=== PATIENT | male | born 1955 | race Caucasian/White ===

== ENCOUNTER 2017-04-01 15:13 | Inpatient (IN) | payer OTHER ==
[~2017-04-01] VITALS: Ht 175.3 cm; Wt 104.3 kg
[~2017-04-01 15:13] MED LIST: ADULT LOW DOSE81 MG PO; ANTIBIOT TOP; CELEXA; CELEXA40 MG PO; D3; DICLOFENAC; DICLOFENAC SODI75 M1 PO; FENOFIBRATE160 MG PO; FISH OIL 1,0001 EAC5 PO; FISHOIL; FLEXERIL PO; GLUCOPHAGE1000 MG PO; GRALISE600 MG PO; KEFLEX500 MG PO; LANTUS SUBQ; LISINOPRIL; LISINOPRIL5 MG PO; METFORMIN; NORCO 10-325 T1 EACH PO; NORCO 5-325 TA1 EACH PO; NORCO 7.5-3251 EACH PO; NOVOLOG100 UNIT/1 SUBQ; ONE DAILY ESSE1 EACH PO; PHENERGAN 25 MG25 M1 PO; SIMVASTATIN40 MG PO; VITAMIN D10000 UNIT PO; ZOCOR
[2017-04-01 15:20] VITALS: BP 99/60
[2017-04-01 15:58] LABS: ABSOLUTE EOSINOPHILS 0.2 thou/uL (0.0-0.7); ABSOLUTE LYMPHOCYTES 1.3 thou/uL (0.8-5.3); ABSOLUTE MONOCYTES 0.7 thou/uL (0.0-1.2); ABSOLUTE NEUTROPHILS 7.7 thou/uL (1.6-8.1); BASOPHILS 0.5 %; EOSINOPHILS 2.1 %; HEMATOCRIT 35.7 % (42.0-52.0); HEMOGLOBIN 11.9 gm/dL (14.0-18.0); LYMPHOCYTES 13.5 %; MCH 28.3 pg (26.0-34.0); MCHC 33.5 g/dL (28.0-37.0); MCV 84.6 fL (80.0-100.0); MONOCYTES 6.7 %; MPV 7.6 fl. (7.2-11.1); NUCLEATED RBCS 0 /100WBC; PLATELET COUNT* 255 thou/uL (150-400); POLYS 77.2 %; RBC 4.22 mil/uL (4.50-6.00); RDW-CV 14.5 % (10.5-14.5)
[2017-04-01 16:06] LABS: CALCIUM 8.9 mg/dL (8.5-10.1); CREATININE 1.1 mg/dL (0.6-1.3); POTASSIUM 3.5 mmol/L (3.5-5.1)
[2017-04-01 16:11] LABS: ALBUMIN 2.7 g/dL (3.4-5.0); TOTAL BILIRUBIN 0.5 mg/dL (<0.1-1.0); TOTAL PROTEIN 6.9 g/dL (6.4-8.2)
[2017-04-01 18:45] VITALS: BP 94/59
[2017-04-01 20:15] VITALS: BP 94/54
[2017-04-02] VITALS: BP 116/73
[2017-04-02 04:45] LABS: HEMATOCRIT 31.7 % (42.0-52.0); HEMOGLOBIN 10.7 gm/dL (14.0-18.0); MCH 28.8 pg (26.0-34.0); MCHC 33.7 g/dL (28.0-37.0); MCV 85.4 fL (80.0-100.0); MPV 7.7 fl. (7.2-11.1); RBC 3.71 mil/uL (4.50-6.00); RDW-CV 14.6 % (10.5-14.5); WBC 7.2 thou/uL (4.0-11.0)
[2017-04-02 05:04] LABS: ALBUMIN 2.3 g/dL (3.4-5.0); CREATININE 0.9 mg/dL (0.6-1.3); MAGNESIUM 1.6 mg/dL (1.8-2.4); POTASSIUM 4.1 mmol/L (3.5-5.1); TOTAL BILIRUBIN 0.4 mg/dL (<0.1-1.0)
[2017-04-02 08:37] VITALS: BP 98/68
[2017-04-02 16:00] VITALS: BP 107/86
[2017-04-02 21:35] VITALS: BP 103/63
[2017-04-03 04:16] LABS: HEMATOCRIT 31.2 % (42.0-52.0); HEMOGLOBIN 10.5 gm/dL (14.0-18.0); MCH 28.4 pg (26.0-34.0); MCHC 33.5 g/dL (28.0-37.0); MCV 84.9 fL (80.0-100.0); MPV 7.5 fl. (7.2-11.1); RBC 3.68 mil/uL (4.50-6.00); RDW-CV 14.6 % (10.5-14.5); WBC 6.5 thou/uL (4.0-11.0)
[2017-04-03 04:32] LABS: ALBUMIN 2.2 g/dL (3.4-5.0); CALCIUM 8.2 mg/dL (8.5-10.1); CREATININE 0.8 mg/dL (0.6-1.3); MAGNESIUM 1.7 mg/dL (1.8-2.4); TOTAL BILIRUBIN 0.4 mg/dL (<0.1-1.0)
[2017-04-03 08:00] VITALS: BP 104/64
[2017-04-03 15:42] VITALS: BP 109/66
[2017-04-03 20:10] VITALS: BP 96/59
[2017-04-04 03:09] LABS: GLYCOHEMOGLOBIN (HGB A1C) 5.6 % (4.8-5.6)
[2017-04-04 05:02] LABS: HEMATOCRIT 32.6 % (42.0-52.0); HEMOGLOBIN 10.9 gm/dL (14.0-18.0); MCH 28.6 pg (26.0-34.0); MCHC 33.4 g/dL (28.0-37.0); MCV 85.6 fL (80.0-100.0); MPV 7.7 fl. (7.2-11.1); RBC 3.81 mil/uL (4.50-6.00); RDW-CV 14.5 % (10.5-14.5); WBC 7.8 thou/uL (4.0-11.0)
[2017-04-04 05:06] LABS: CALCIUM 8.4 mg/dL (8.5-10.1); CREATININE 0.8 mg/dL (0.6-1.3); POTASSIUM 4.2 mmol/L (3.5-5.1)
[2017-04-04 08:00] VITALS: BP 123/82
[2017-04-04 16:20] VITALS: BP 106/62
[2017-04-04 20:00] VITALS: BP 100/61
[2017-04-05] VITALS: BP 91/57
[2017-04-05 04:48] LABS: ABSOLUTE EOSINOPHILS 0.2 thou/uL (0.0-0.7); ABSOLUTE LYMPHOCYTES 0.9 thou/uL (0.8-5.3); ABSOLUTE MONOCYTES 0.3 thou/uL (0.0-1.2); ABSOLUTE NEUTROPHILS 3.6 thou/uL (1.6-8.1); BASOPHILS 0.4 %; EOSINOPHILS 3.8 %; HEMATOCRIT 34.8 % (42.0-52.0); HEMOGLOBIN 11.5 gm/dL (14.0-18.0); LYMPHOCYTES 18.2 %; MCH 28.2 pg (26.0-34.0); MCHC 33.2 g/dL (28.0-37.0); MCV 85.2 fL (80.0-100.0); MONOCYTES 6.9 %; MPV 7.4 fl. (7.2-11.1); NUCLEATED RBCS 0 /100WBC; PLATELET COUNT* 291 thou/uL (150-400); POLYS 70.7 %; RBC 4.08 mil/uL (4.50-6.00); RDW-CV 14.9 % (10.5-14.5); WBC 5.1 thou/uL (4.0-11.0)
[2017-04-05 06:49] LABS: CALCIUM 8.5 mg/dL (8.5-10.1); CREATININE 0.8 mg/dL (0.6-1.3); PHOSPHORUS* 3.7 mg/dL (2.5-4.9); POTASSIUM 4.2 mmol/L (3.5-5.1)
[2017-04-05 08:00] VITALS: BP 111/72
[2017-04-05] MEDS ORDERED: CIPRO250 M1 PO (12:40)
[2017-04-05] MEDS ORDERED: FLAGYL500 MG PO (12:40)
[2017-04-05] MEDS ORDERED: PROBIOTIC1 EAC1 PO (12:41)
[2017-04-05 14:35] VITALS: BP 111/72
[2017-04-05 14:38] VITALS: BP 111/72
[2017-04-05 16:27] VITALS: BP 111/72
[2017-04-05 16:28] VITALS: BP 111/72
--- NOTE | 2017-04-18 14:50 | CON ---
[address] [address] CONSULTATION Name: JORJE DECKER Room: [address] IN ..#: [id number] Admission: 04/01/17 Attend Phys: Marco Winn, Discharge: 04/05/17 Date of : 59 Report #: [id number] THIS REPORT FOR: //name// CC: Oniel Winn DATE OF SERVICE: 04/02/2017 REASON FOR CONSULT: Abnormal CT and abdominal pain. HISTORY OF PRESENT ILLNESS: This is a 61-year-old male with history of colonoscopy 9 years ago, which was significant only for diverticulosis. The patient reports that he never had any problems with diverticulitis, but started having abdominal pain, which was mainly in the left lower quadrant. This prompted him to see his primary care doctor on Saturday and he was sent for a CT scan of the abdomen. Subsequent to CT, the results revealed a small pocket of extraluminal gas and a 1.6 x 2.6 cm abscess next to the sigmoid region. The patient was then asked to present to hospital where he was admitted. Since hospitalization, the patient has been started on IV antibiotics. The patient reports that he has diabetes for the past 5 years and since he wanted to get that under control he has been trying to lose weight and has lost 60 pounds in the past year. He denied any upper GI symptoms as he denies nausea, vomiting, dyspepsia, GERD and dysphagia. PAST MEDICAL HISTORY: Significant for hyperlipidemia, hypertension, diabetes, diverticulosis. ALLERGIES: No known drug allergy. MEDICATIONS: Please refer to hospital MAR. SOCIAL HISTORY: The patient lives at home. Denies tobacco or alcohol use. FAMILY HISTORY: Negative for GI malignancy. PHYSICAL EXAMINATION: VITAL SIGNS: Reveals blood pressure of 98/68, respiration 18, pulse 76, temperature 36.9. LUNGS: Clear. CARDIOVASCULAR: Regular. ABDOMEN: Soft, mildly tender to palpation in the left lower quadrant. Bowel sounds are positive. NEUROLOGIC: The patient is alert, oriented x 3. [place] [address] CONSULTATION Name: JORJE DECKER Room: [address]#: [id number] Admission: 04/01/17 Attend Phys: Marco Winn, Discharge: 04/05/17 Date of : 59 Report #: [id number]. LABORATORY DATA: Revealed WBC of 7.2, hemoglobin 10.7 with platelet count of 214. Sodium is 134, potassium 4.1, BUN is 12, creatinine 0.9, glucose is 161, calcium is 8.0. Liver function tests are all within normal limit. Total bilirubin 0.4, albumin is 2.3. WBC is 10.0 with hemoglobin of 11.9 and platelets of 255. IMAGING: CT of abdomen and pelvis as discussed above. ASSESSMENT AND PLAN: The patient with moderate pericolonic inflammatory region in the sigmoid colon with a small abscess and a small pocket of extraluminal gas. Surgery is on board and the patient is on antibiotics. We will recommend repeat CT of abdomen in 3 days and if there is no resolution or partial resolution of the abscess, we will consider drainage by IR. The patient has not had a colonoscopy for the past 9 years, therefore we will recommend colonoscopy in 6-8 weeks. We will continue to monitor him during this hospitalization and make further recommendation. <ELECTRONICALLY SIGNED> By: Carlos Eduardo Salomon MD 04/18/17 1450 1400 29Carlos Eduardo Salomon MD /nt
== END 2017-04-05 15:45 | disposition home or self-care (01) | DRG 392 ==
LOC: M.ERS 15:13 → M.TBA-ER 16:55 → M.ORTHSURG 16:55
PROVIDERS: Internal Medicine; Personal Emergency Response Attendant; Surgery; ADMIT Family Medicine
DX: K57.20 Diverticulitis of large intestine with perforation and abscess without bleeding (principal); E87.1 Hypo-osmolality and hyponatremia; E44.0 Moderate protein-calorie malnutrition; F32.9 Major depressive disorder, single episode, unspecified; I10 Essential (primary) hypertension; E78.5 Hyperlipidemia, unspecified; E11.9 Type 2 diabetes mellitus without complications; E27.9 Disorder of adrenal gland, unspecified; I95.9 Hypotension, unspecified; K59.00 Constipation, unspecified; Z90.89 Acquired absence of other organs; Z98.1 Arthrodesis status; Z79.899 Other long term (current) drug therapy; Z79.4 Long term (current) use of insulin; Z79.82 Long term (current) use of aspirin; Z87.891 Personal history of nicotine dependence; Z82.49 Family history of ischemic heart disease and other diseases of the circulatory system; Z68.33 Body mass index [BMI] 33.0-33.9, adult

== ENCOUNTER 2017-08-26 16:03 | Emergency (ER) | payer OTHER ==
[~2017-08-26] VITALS: Ht 175.3 cm; Wt 100.7 kg
[~2017-08-26 16:03] MED LIST changes: +CIPRO250 M1 PO; +FLAGYL500 MG PO; +PROBIOTIC1 EAC1 PO
[2017-08-26 16:34] LABS: URINE BILIRUBIN NEGATIVE (Negative); URINE BLOOD TRACE (Negative); URINE CLARITY CLEAR; URINE COLOR YELLOW; URINE GLUCOSE-RANDOM NEGATIVE (Negative); URINE KETONES NEGATIVE (Negative); URINE LEUKOCYTES-REFLEX NEGATIVE (Negative); URINE NITRITE-REFLEX NEGATIVE (Negative); URINE PROTEIN NEGATIVE (Negative); URINE SPECIFIC GRAVITY 1.025 (1.005-1.030); URINE UROBILINOGEN 0.2 E.U./dl (0.2-1.0)
[2017-08-26 16:35] LABS: ABSOLUTE EOSINOPHILS 0.1 thou/uL (0.0-0.7); ABSOLUTE LYMPHOCYTES 1.5 thou/uL (0.8-5.3); ABSOLUTE MONOCYTES 0.5 thou/uL (0.0-1.2); ABSOLUTE NEUTROPHILS 5.1 thou/uL (1.6-8.1); BASOPHILS 0.5 %; EOSINOPHILS 1.7 %; HEMOGLOBIN 13.4 gm/dL (14.0-18.0); LYMPHOCYTES 21.1 %; MCHC 33.6 g/dL (28.0-37.0); MCV 86.3 fL (80.0-100.0); MONOCYTES 6.5 %; NUCLEATED RBCS 0 /100WBC; PLATELET COUNT* 265 thou/uL (150-400); POLYS 70.2 %; RBC 4.63 mil/uL (4.50-6.00); RDW-CV 13.9 % (10.5-14.5); WBC 7.2 thou/uL (4.0-11.0)
[2017-08-26 16:43] LABS: CALCIUM 9.1 mg/dL (8.5-10.1); POTASSIUM 3.5 mmol/L (3.5-5.1)
[2017-08-26 16:47] LABS: ALBUMIN 3.9 g/dL (3.4-5.0); TOTAL BILIRUBIN 0.5 mg/dL (<0.1-1.0); TOTAL PROTEIN 7.5 g/dL (6.4-8.2)
[2017-08-26] MEDS ORDERED: BENTYL 20 MG TA20 M1 PO (18:04)
[2017-08-26] MEDS ORDERED: ROBAXIN500 MG PO (18:04)
[2017-08-26] MEDS ORDERED: PHENERGAN25 M1 RECTAL (18:04)
[2017-08-26 18:17] VITALS: BP 115/72
== END 2017-08-26 18:17 | disposition home or self-care (01) ==
LOC: M.ERS 16:03
PROVIDERS: Nurse Practitioner Family
DX: K80.50 Calculus of bile duct without cholangitis or cholecystitis without obstruction (principal); R19.7 Diarrhea, unspecified; F32.9 Major depressive disorder, single episode, unspecified; I10 Essential (primary) hypertension; E78.5 Hyperlipidemia, unspecified; E11.9 Type 2 diabetes mellitus without complications; Z79.4 Long term (current) use of insulin

== ENCOUNTER → 2018-04-29 | Outpatient (CLI) | payer OTHER ==
[~2018-04-29] MED LIST changes: +BENTYL 20 MG TA20 M1 PO; +PHENERGAN25 M1 RECTAL; +ROBAXIN500 MG PO
--- NOTE | 2018-04-29 16:45 | 2DMMODE ---
[place] [address] 2 D/M-MODE ECHOCARDIOGRAM Name: JORJE DECKER Room: [facility]#: [id number] Admission: 04/29/18 Attend Phys: Helen Rosales Discharge: Date of : 59 Date of Service: 04/29/18 1645 Report #: [id number] THIS REPORT FOR: //name// APPROVED REPORT Study performed: 04/29/2018 14:50:25 EXAM: Comprehensive 2D, Doppler, and color-flow Echocardiogram Patient Location: Out-Patient BSA: 2.14 HR: 72 bpm BP: 121/84 mmHg Other Information Study Quality: Good Indications Dyspnea Hypertension/HDD 2D Dimensions IVSd: 12.34 (7-11mm) LVOT Diam: 20.17 (18-24mm) LVDd: 49.39 mm PWd: 10.20 (7-11mm) Ascending Ao: 37.50 (22-36mm) LVDs: 27.97 (25-40mm) Aortic Root: 33.04 mm Volumes Left Atrial Volume (Systole) LA ESV Index: 16.00 mL/m2 Aortic Valve AoV Peak Thien.: 1.95 m/s AO Peak Gr.: 15.28 mmHg LVOT Max P.87 mmHg AO Mean Gr.: 8.08 mmHg LVOT Mean P.23 mmHg LVOT Max V: 1.10 m/s AO V2 VTI: 37.18 cm LVOT Mean V: 0.68 m/s ELI (VTI): 2.02 cm2 LVOT V1 VTI: 23.50 cm Mitral Valve E/A Ratio: 0.60 MV Decel. Time: 294.22 ms MV E Max Thien.: 0.52 m/s MV PHT: 85.32 [place] [address] 2 D/M-MODE ECHOCARDIOGRAM Name: JORJE DECKER Room: [facility]#: [id number] Admission: 04/29/18 Attend Phys: Helen Rsoales Discharge: Date of : 59 Date of Service: 04/29/18 1645 Report #: [id number] MVA (PHT): 2.58 cm2 TDI E/Lateral E': 5.20 E/Medial E': 6.50 Medial E' Thien.: 0.08 m/s Lateral E' Thien.: 0.10 m/s Pulmonary Valve PV Peak Thien.: 1.26 m/s PV Peak Gr.: 6.34 mmHg Left Ventricle The left ventricle is normal size. There is normal LV segmental wall motion. There is normal left ventricular wall thickness. Left ventricular systolic function is normal. LVEF is 60-65%. Grade I - abnormal relaxation pattern. Right Ventricle The right ventricle is normal size. The right ventricular systolic function is normal. Atria The left atrium size is normal. The right atrium size is normal. Aortic Valve Aortic valve is mildly calcified. Mild aortic regurgitation. There is no aortic valvular stenosis. Mitral Valve The mitral valve is normal in structure. There is no mitral valve regurgitation noted. No evidence of mitral valve stenosis. Tricuspid Valve The tricuspid valve is normal in structure. There is no tricuspid valve regurgitation noted. Pulmonic Valve The pulmonary valve is normal in structure. There is no pulmonic valvular regurgitation. Great Vessels The aortic root is normal in size. IVC is normal in size and collapses >50% with inspiration. Pericardium There is [place] [address] 2 D/M-MODE ECHOCARDIOGRAM Name: JORJE DECKER [id number] Admission: 04/29/18 Attend Phys: Helen Rosales Discharge: Date of : 59 Date of Service: 04/29/18 1645 Report #: [id number] <Conclusion> The left ventricle is normal size. There is normal left ventricular wall thickness. Left ventricular systolic function is normal. LVEF is 60-65%. Grade I - abnormal relaxation pattern. Aortic valve is mildly calcified. Mild aortic regurgitation. IVC is normal in size and collapses >50% with inspiration. <ELECTRONICALLY SIGNED> By: Chaz Lazcano MD, FACC 04/29/181644 44 44 Chaz Lazcano MD, FACC /INF
--- NOTE | 2018-04-30 17:10 | CARDNUC ---
[place] [address] CARDIAC NUCLEAR IMAGING REPORT Name: JORJE DECKER Room: [facility]#: [id number] Admission: 04/29/18 Attend Phys: Helen Rosales Discharge: Date of : 59 Date of Service: 04/30/18 1710 Report #: [id number] THIS REPORT FOR: //name// APPROVED REPORT Imaging Protocol: Rest Tc-99m/Stress Tc-99m 1 day Study performed: 04/29/2018 12:45:00 Indication: Dyspnea Patient Location: Out-Patient Stress Tech: [facility] Stress Nurse: Kaur Leblanc RN Ht: 5 ft 9 in Wt: 219 lbs BSA: 2.15 m2 BMI: 32.33 Medical History Medical History: Diabetes, Former Smoker, HTN, Hyperlipidemia, Obesity , RBBB, SOB, First Deg. AV Block. Medications: ASA 81 mg, Lisinopril, Simvastatin, Metformin, Insulin. Allergies: Darvon Cardiac Risk Factors: Age, Diabetes (insulin), HTN, Hyperlipidemia, SOB, Past Smoker, RBBB, First Deg. AV Block. Previous Cardiac Procedures: None Pretest Chest Pain Characteristics: No chest pain Exercise History: Indeterminate Physical Disabilities: Back, Legs. Meds Held (24 hrs): None Resting Data Rest SPECT myocardial perfusion imaging was performed in supine position 30 minutes following the intravenous injection of 9.4 mCi of Tc-99m Sestamibi. Time of rest injection: 13:05 The images were gated to evaluate regional wall motion and calculate left ventricular ejection fraction. Administration Route: IV Administration Site: Right AC Pharmacologic Stress Pharmacologic stress test was performed by injecting Regadenoson 0.4 mg IV push over 10-15 seconds immediately followed by the intravenous injection of 33.9 mCi of Tc-99m Sestamibi. Time of stress injection: 14:50 [place] [address] CARDIAC NUCLEAR IMAGING REPORT Name: JORJE DECKER Room: [facility]#: [id number] Admission: 04/29/18 Attend Phys: Helen Rosales Discharge: Date of : 59 Date of Service: 04/30/18 1710 Report #: [id number] Administration Route: IV Administration Site: Right AC Heart Rate at time of stress injection: 132 bpm. Gated Stress SPECT was performed 40 minutes after stress injection. The images were gated to evaluate regional wall motion and calculate left ventricular ejection fraction. Prone imaging was performed. Stress Test Details Stress Test: Pharmacologic stress testing performed using 0.4 mg of regadenoson per 5 mL given IV over 10 seconds. Reason for pharmacologic stress test: physical limitation, Bad back and legs/Pain.. HR Max Heart Rate (APMHR): 160 bpm Resting HR: 71 bpm Target HR (85% APMHR): 136 bpm Max HR Achieved: 132 bpm % of APMHR: 82 Recovery HR: 82 bpm HR response to stress: Normal HR response to stress BP Resting BP: 122/87 mmHg Max BP: 95/80 mmHg Recovery BP: 116/84 mmHg BP response to stress: Normal blood pressure response to stress. ECG Resting ECG: nsr RBBB Stress ECG: nsr RBBB ST Change: none Arrhythmia: none Recovery ECG: nsr rbbb Recovery ST Change: none Recovery Arrhythmia: none Clinical Reason for Termination: Completed protocol Stress Symptoms: SOA, Lightheaded, Nausea, Emesis. Exercise duration: 0 min 0 sec Exercise capacity: 1.00 METs Nurse Comments 62 year old male presented with reported increased SOA. Patient stated he has had back and leg surgery [place] [address] CARDIAC NUCLEAR IMAGING REPORT Name: JORJE DECKER Room: [facility]#: [id number] Admission: 04/29/18 Attend Phys: Helen Rosales Discharge: Date of : 59 Date of Service: 04/30/18 3540 Report #: [id number] making walking on treadmill difficult, unsafe. Patient performed a sitting Lexiscan with strong nausea and emesis. Side effects did subside and patient was able to take in caffeine PO which was effective in making patient feel better.Recovery continued unremarkable. Patient was taken for an Echocardiogram and then to Nuclear Medicine for images. Patient was stable with no complaints at that time. Stress ECG Conclusion nondiagnostic ecg Study Quality Study: Good Artifact: No artifact Increased GI uptake Study Data At rest, the left ventricular ejection fraction was 63%.. Post stress, the left ventricular ejection was 65%.. SSS: 0 SRS: 0 SDS: 0 TID = 1.19. Perfusion Review of SPECT images at rest and stress show a relatively uniform uptake of tracer in all segments, without reversible defects. There is some mild extra cardiac uptake adjacent to inferior wall, decreasing sensitivity in this region, but the the stress prone images show a normal perfusion in the inferior segment. Wall Motion normal all segments Nuclear Conclusion ECG Findings: non-diagnostic Clinical Findings: negative for ischemia Nuclear Findings: negative for ischemia Exercise Capacity: not assessed Left Ventricular Function: normal Risk Study: low Negative perfusion stress test [place] [address] CARDIAC NUCLEAR IMAGING REPORT Name: JERONIMOJORJE E Room: [facility]#: [id number] Admission: 04/29/18 Attend Phys: Helen Rosales Discharge: Date of : 59 Date of Service: 04/30/18 7720 Report #: [id number] <Conclusion> nondiagnostic ecg <ELECTRONICALLY SIGNED> By: Michael Enriquez MD, FACC 04/30/181709 09 09 Michael Enriquez MD, [facility] /INF
== END ==
LOC: M.CRD 04-03 16:01 → M.NUC 12:40
DX: R06.09 Other forms of dyspnea (principal); I10 Essential (primary) hypertension; E11.9 Type 2 diabetes mellitus without complications; E78.00 Pure hypercholesterolemia, unspecified; Z88.8 Allergy status to other drugs, medicaments and biological substances